=== PATIENT | male | born 1990 | race Caucasian/White ===

== ENCOUNTER 2018-12-27 05:41 | Emergency (ER) | payer MEDICAID ==
[~2018-12-27] VITALS: Ht 185.4 cm; Wt 88.0 kg
[2018-12-27] MEDS ORDERED: cloNIDine HCL 0.1 MG TAB PO ONE (06:15)
[2018-12-27] MEDS ORDERED: ONDANSETRON HCL 4 MG/2 ML VIAL IV ONE (06:15)
[2018-12-27] MEDS ORDERED: MORPHINE SULFATE 4 MG/ML SYR/VIAL IV ONE (06:15)
[2018-12-27 07:43] LABS: Basophils # (auto) 0 uL; Basophils % (auto) 0.5 % (0.0-2.0); Eosinophils # (auto) 0 uL; Eosinophils % (auto) 0.5 % (0.0-7.0); Hematocrit 51.3 % (41.0-53.0); Hemoglobin 17.6 g/dL (13.5-17.5); Lymphocytes % (auto) 10.9 % (10.0-50.0); Mean Corpuscular Hemoglobin 32.7 pg (28.0-32.0); Mean Corpuscular Hgb Conc. 34.4 g/dL (32.0-36.0); Monocytes # (auto) 0.8 uL; Neutrophils # (auto) 7.5 uL; Neutrophils % (auto) 80.1 % (37.0-80.0); Nucleated Red Blood Cells % 0.1 %; Platelet Count (auto) 288 10^3/uL (140-450); White Blood Cell 9.4 10^3/uL (4.4-10.8)
[2018-12-27 07:49] LABS: Albumin 3.7 g/dL (3.4-5.0); BUN/Creatinine Ratio 8.3; Calcium 9.9 mg/dL (8.5-10.1); Potassium 3.7 mmol/L (3.5-5.1)
[2018-12-27 07:52] LABS: Bilirubin, Total 0.4 mg/dL (0.2-1.0); Total Protein 8.6 g/dL (6.4-8.2)
[2018-12-27] MEDS ORDERED: KETOROLAC TROMETH 30 MG/ML 1ML VIAL IV ONE (09:00)
[2018-12-27 11:12] LABS: Urine Bacteria FEW /hpf (None Seen); Urine Blood TRACE /uL (Negative); Urine Hyaline Cast MOD /lpf (0 - 2); Urine Mucus FEW (None Seen); Urine Specific Gravity 1.029 (1.001-1.035); Urine WBC 1 /hpf (0 - 3)
[2018-12-27 11:37] LABS: Amphetamine Screen, Urine NEGATIVE (NEGATIVE); Barbiturate Scree,Urine NEGATIVE (NEGATIVE); Benzodiazephine Screen, Urine NEGATIVE (NEGATIVE); Cannabinoid Screen, Urine POSITIVE (NEGATIVE); Cocaine Screen, Urine NEGATIVE (NEGATIVE); Opiate Scree,Urine POSITIVE (NEGATIVE); Phencyclidine Screen, Urine NEGATIVE (NEGATIVE)
[2018-12-27 12:00] VITALS: BP 112/61
== END 2018-12-27 12:13 | disposition home or self-care (01) ==
LOC: ER 05:41
DX: K80.20 Calculus of gallbladder without cholecystitis without obstruction (principal); E86.0 Dehydration; F10.10 Alcohol abuse, uncomplicated; F17.210 Nicotine dependence, cigarettes, uncomplicated; F12.10 Cannabis abuse, uncomplicated
CPT/HCPCS: 36415; 74176; 76705; 80053; 80307; 80320; 81001; 85025; 96374; 96375; 99284; J1885; J2270; J2405

== ENCOUNTER 2024-12-17 14:22 | Emergency (ER) | payer MEDICAID ==
[~2024-12-17] VITALS: Ht 188 cm; Wt 66.3 kg
--- NOTE | 2024-12-17 14:51 | ED.PDOC ---
GI ASSESSMENT HPI Comments 34 y/o M, with PMHx of alcohol abuse presents to the ED for CC of abdominal pain. Patient states, he has been experiencing abdominal pain with associated symptoms of weakness, fatigue, and poor appetite [id number]. Patient reports, that he has been unable to keep anything down and throws up even clear liquids. Patient endorses, becoming so weak that he has been unable to ambulate and gets around with the assistance of a wheelchair. Patient denies diarrhea, hematemesis, constipation, fever, chills, or faintness. No other symptoms or modifying factors are present at this time. Chief Complaint: Abdominal Pain Time Seen by MD: 14:30 Reviewed Notes: Nurses Notes, Medications, Allergies Allergies: Coded Allergies: NO KNOWN ALLERGIES (Unverified , 12/27/18) Information Source: Patient Mode of Arrival: Wheelchair Timing: Months Duration: Since onset Prehospital treatment: None Vomitus: Watery Severity: Moderate Recent: None Recent Hx of: None Pain Location: Diffuse Modifying Factors: Nothing Associated sign and symptoms: Nausea, Vomiting, Abdominal Pain Past Medical History PAST MEDICAL HISTORY: Gallstones Surgical History: Denies all surgeries Family History Family History: Reviewed,noncontributory to illness Social History Smoker: Cigarettes, Less Than 1 Pack/Day Alcohol: Heavy Drugs: Marijuana Lives In: Home Constitutional: reports: fatigue; denies: chills, diaphoresis, fever, malaise, sweats, weakness, others EENTM: denies: blurred vision, double vision, ear bleeding, ear discharge, ear drainage, ear pain, ear ringing, eye pain, eye redness, hearing loss, mouth pain, mouth swelling, nasal discharge, nose bleeding, nose congestion, nose pain, photophobia, tearing, throat pain, throat swelling, voice changes, others Respiratory: denies: cough, hemoptysis, orthopnea, SOB at rest, shortness of breath, SOB with excertion, stridor, wheezing, others Cardiovascular: denies: chest pain, dizzy spells, diaphoresis, Dyspnea on exertion, edema, irregular heart beat, left arm pain, lightheadedness, palpitations, PND, syncope, others Gastrointestinal: reports: nausea, poor appetite, vomiting; denies: abdomen distended, abdominal pain, blood streaked bowels, constipated, diarrhea, dysphagia, difficulty swallowing, hematemesis, melena, poor fluid intake, rectal bleeding, rectal pain, others Genitourinary: denies: burning, dysuria, flank pain, frequency, hematuria, incontinence, penile discharge, penile sore, pain, testicle pain, testicle swelling, urgency, others Neurological: denies: dizziness, fainting, headache, left sided numbness, left sided weakness, numbness, paresthesia, pre-existing deficit, right sided numbness, right sided weakness, seizure, speech problems, tingling, tremors, weakness, others Musculoskeletal: denies: back pain, gout, joint pain, joint swelling, muscle pain, muscle stiffness, neck pain, others Integumetry: denies: bruises, change in color, change in hair/nails, dryness, laceration, lesions, lumps, rash, wounds, others Allergic/Immunocompromised: denies: Difficulty Healing, Frequent Infections, Hives, Itching, others Hematologic/Lymphatic: denies: anemia, blood clots, easy bleeding, easy bruising, swollen glands, others Endocrine: denies: excessive hunger, excessive sweating, excessive thirst, excessive urination, flushing, intolerance to cold, intolerance to heat, unexplained weight gain, unexplained weight loss, others Psychiatric: denies: anxiety, bipolar disorder, depression, hopeless, panic disorder, schizophrenia, sleepless, suicidal, others All Other Systems: Reviewed and Negative Physical Exam General Appearance: Moderate Distress, Thin HEENT: Pharynx Normal, Scleral Icterus (L), Scleral Icterus (R), TMs Normal Neck: Full Range of Motion, Non-Tender, Normal, Normal Inspection Respiratory: Chest Non-Tender, Lungs Clear, No Accessory Muscle Use, No Respiratory Distress, Normal Breath Sounds Cardiovascular: No Edema, No JVD, No Murmur, No Gallop, Normal Peripheral Pulses, Regular Rate/Rhythm Breast Exam: Deferred Gastrointestinal: Diffuse, No Organomegaly, No Pulsatile Mass, Normal Bowel Sounds, Soft, Tenderness Genitalia: Deferred Pelvic: Deferred Rectal: Deferred Extremities: No calf tenderness, Normal capillary refill, No pedal edema Musculoskeletal : Apperance: Normal Neurologic: Alert, jewelry internship II-XII nml as Tested, No Motor Deficits, Normal Affect, Normal Mood, No Sensory Deficits Cerebellar Function: Normal Reflexes: Normal Skin: Dry, Normal Color, Warm Lymphatic: No Adenopathy Was a procedure done? Was a procedure done?: No GI differential Dx Differential Diagnosis: Gastritis/PUD, Gastroenteritis, Dehydration, Drug toxicity, Bacterial, Viral X-Ray, Labs, Meds, VS Vital Signs Date Time Temp Pulse Resp B/P (MAP) Pulse Ox O2 Delivery O2 Flow Rate FiO2 12/17/24 15:13 98.6 98 18 137/77 (97) 99 98.6 12/17/24 14:25 97.7 106 16 126/75 100 97.7 Lab Test 12/17/24 15:23 Range/Units White Blood Count 9.8 4.4-10.8 10^3/uL Red Blood Count 3.17 L 4.5-5.90 10^6/uL Hemoglobin 11.1 L 13.5-17.5 g/dL Hematocrit 31.5 L 41.0-53.0 % Mean Corpuscular Volume 99.4 80.0-100.0 fL Mean Corpuscular Hemoglobin 35.0 H 28.0-32.0 pg Mean Corpuscular Hemoglobin Concent 35.2 32.0-36.0 g/dL Red Cell Distribution Width 13.5 11.8-14.3 % Platelet Count 132 L 140-450 10^3/uL Mean Platelet Volume 6.8 L 6.9-10.8 fL Neutrophils (%) (Auto) 70.9 37.0-80.0 % Lymphocytes (%) (Auto) 17.4 10.0-50.0 % Monocytes (%) (Auto) 9.4 0.0-12.0 % Eosinophils (%) (Auto) 1.4 0.0-7.0 % Basophils (%) (Auto) 0.9 0.0-2.0 % Neutrophils # (Auto) 7.0 1.6-8.6 10 ^3/uL Lymphocytes # (Auto) 1.7 0.4-5.4 10 ^3/uL Monocytes # (Auto) 0.9 0-1.3 10 ^3/uL Eosinophils # (Auto) 0.1 0-0.8 10 ^3/uL Basophils # (Auto) 0.1 0-0.2 10 ^3/uL Nucleated Red Blood Cells 0.1 % Sodium Level 137 136-145 mmol/L Potassium Level 3.6 3.5-5.1 mmol/L Chloride Level 105 98-107 mmol/L Carbon Dioxide Level 25 20-31 mmol/L Anion Gap 7 5-15 Blood Urea Nitrogen < 5 L 9-23 mg/dL Creatinine 0.70 0.700-1.30 mg/dL Glomerular Filtration Rate Calc 123 >90 mL/min BUN/Creatinine Ratio 7.1 L 10.0-20.0 Serum Glucose 101 74-106 mg/dL Calcium Level 8.6 L 8.7-10.4 mg/dL Total Bilirubin 2.8 H 0.2-1.0 mg/dL Aspartate Amino Transferase (AST) 232 H 13-40 U/L Alanine Aminotransferase (ALT) 91 H 7-40 U/L Alkaline Phosphatase 179 H 46-116 U/L Total Protein 7.7 5.7-8.2 g/dL Albumin 3.1 L 3.2-4.8 g/dL Lipase 99 H 12-53 U/L Plasma/Serum Blood Alcohol 82.3 H <10 mg/dL [place] [id number] DIAGNOSTIC IMAGING Diagnostic Imaging Report : [id number] Signed PATIENT: KARISHMA JONES ACCT: [id number] UNIT: [id number] : 1990 LOC: ER ROOM / BED: / AGE / SEX: 34 / M ADM STATUS: REG ER SERVICE 1453 ORDERING PHYSICIAN: EVER CAZARES MD PROCEDURE(s): ABPL - CT AB PEL WO CON-NO ORAL OR IV REASON: pain ORDER NUMBER(s): [id number], ACCESSION NUMBER(s): [id number] CLINICAL HISTORY: Abdominal pain TECHNIQUE: CT of the abdomen and pelvis was performed without intravenous contrast. This exam was performed according to our departmental dose optimization program. Up-to-date CT equipment and radiation dose reduction techniques are utilized as appropriate. CTDI: 7.46 DLP: 420.81 WID: COMPARISON: None FINDINGS: Lower Thorax: Normal-sized heart. Lung bases are clear. There are small gastroesophageal varices. Liver and Biliary system: Mild hepatomegaly with the right lobe of the liver measuring 19 cm craniocaudal very mild nodular contour of the liver. Prior cholecystectomy. There is no biliary ductal dilatation. Portosystemic collateral vessels are present in the upper abdomen Spleen: Mild Splenomegaly. Adrenal Glands and Kidneys: Unremarkable. Pancreas and Retroperitoneum: Grossly normal pancreas. There are prominent gastrohepatic ligament periportal, and retroperitoneal lymph nodes. Aorta and Major Vessels: Unremarkable. Bowel, Mesentery and Peritoneal space: Normal caliber small and large bowel. There is mild wall thickening of the ascending colon. Trace ascites. No free air or fluid collection. Pelvis: Unremarkable. Abdominal wall and Osseous Structures: Mild body wall edema. Tiny sclerotic foci in the proximal femurs and pelvis, likely bone islands. No destructive osseous lesion. IMPRESSION: 1. Findings suggestive of fibrosis or cirrhosis of the liver which demonstrates nodular contour, and portal hypertension with portosystemic collateral vessels including small gastroesophageal varices, mild splenomegaly, and mild ascites. 2. Mild wall thickening of the ascending colon which could be related to portal hypertension versus mild colitis. 3. Mild body wall edema. ATED BY: CRYS BAXTER MD DICTATED DATE/TIME: 12/17/241537 SIGNED BY: CRYS BAXTER MD SIGNED DATE/TIME: 12/17/241537 CC: The patient is showing some cirrhosis of the liver The patient also has some colitis. At this time, the patient is being admitted to the hospitalist The CBC shows some mild anemia The chemistry panel is within normal limits. The liver enzymes are elevated with a total bilirubin of 2.8 Images Reviewed?: Images reviewed and evaluated by me Time of 1ST Reevaluation: 15:00 Reevaluation 1ST: Unchanged Patient Education/Counseling: Diagnosis, Treatment, Prognosis Family Education/Counseling: Diagnosis, Treatment, Prognosis SEPSIS Sepsis Screen Date sepsis recognized/suspect: Dec 17, 2024 Time Sepsis recognized/suspect: 1424 Recent Procedure: No On Antibiotic Therapy: No Respiratory Rate >20: No Heart Rate >90: Yes Temp<36 C (96.8 F) or >38.3 C: No SBP <90 or MAP <65 mmHG: No New Acute Mental Status Change: No Is the patient on CPAP, BIPAP,: No Physician Orders Urinalysis (12/17/24 14:53) Ct Ab Pel Wo Con-No Oral Or Iv (12/17/24 14:53) Heplock Iv (12/17/24 14:53) Granulator Tender (12/17/24 14:53) Blood Pressure (12/17/24 14:53) Pulse Oximetry (12/17/24 14:53) Drug Screen (12/17/24 14:53) Vital Signs Date Time Temp Pulse Resp B/P (MAP) Pulse Ox O2 Delivery O2 Flow Rate FiO2 12/17/24 15:13 98.6 98 18 137/77 (97) 99 98.6 12/17/24 14:25 97.7 106 16 126/75 100 97.7 Laboratory Tests Test 12/17/24 15:23 White Blood Count 9.8 10^3/uL (4.4-10.8) Departure 1 Departure Time of Disposition: 17:51 Impression: Primary Impression: Intractable abdominal pain Additional Impressions: Intractable vomiting Severe dehydration Hyperbilirubinemia Disposition: ADMITTED INPATIENT Admit to: Med Surg Condition: Fair Critical Care Note Critical Care Time?: No Stability Stability form required: Yes Unstable for transfer: ED Physician Assesment (Clinical assesment) Heart Score Heart Score: Heart Score Response (Comments) Value History N/A 0 EKG N/A 0 Age N/A 0 Risk Factors N/A 0 Troponin N/A 0 Total 0 I personally scribed for EVER CAZARES MD ([email or web address]) on 12/17/24 at 14:51. Electronically submitted by Gladis Nichols ([email or web address]). I personally scribed for EVER CAZARES MD ([email or web address]) on 12/17/24 at 16:03. Electronically submitted by Thuy Almazan ([facility]). I personally scribed for EVER CAZARES MD ([email or web address]) on 12/17/24 at 16:25. Electronically submitted by Gladis Nichols [email or web address]). EVER CAZARES MD Dec 17, 2024 14:51
[2024-12-17] MEDS ORDERED: SODIUM CHLORIDE 0.9% 1,000 ML IVB ONE (15:00)
[2024-12-17] MEDS ORDERED: ONDANSETRON HCL 4 MG/2 ML VIAL IV ONE (15:00)
[2024-12-17 15:13] VITALS: BP 137/77; PULSE 98; RESP 18; TEMP 98.6; O2SAT 99
[2024-12-17 15:38] LABS: Hematocrit 31.5 % (41.0-53.0); Hemoglobin 11.1 g/dL (13.5-17.5); Mean Corpuscular Hemoglobin 35.0 pg (28.0-32.0); Mean Corpuscular Volume 99.4 fL (80.0-100.0); Nucleated Red Blood Cells % 0.1 %
--- NOTE | 2024-12-17 15:40 | DVH ---
CLINICAL HISTORY: Abdominal pain TECHNIQUE: CT of the abdomen and pelvis was performed without intravenous contrast. This exam was performed according to our departmental dose optimization program. Up-to-date CT equipment and radiation dose reduction techniques are utilized as appropriate. CTDI: 7.46 DLP: 420.81 WID: COMPARISON: None FINDINGS: Lower Thorax: Normal-sized heart. Lung bases are clear. There are small gastroesophageal varices. Liver and Biliary system: Mild hepatomegaly with the right lobe of the liver measuring 19 cm craniocaudal very mild nodular contour of the liver. Prior cholecystectomy. There is no biliary ductal dilatation. Portosystemic collateral vessels are present in the upper abdomen Spleen: Mild Splenomegaly. Adrenal Glands and Kidneys: Unremarkable. Pancreas and Retroperitoneum: Grossly normal pancreas. There are prominent gastrohepatic ligament periportal, and retroperitoneal lymph nodes. Aorta and Major Vessels: Unremarkable. Bowel, Mesentery and Peritoneal space: Normal caliber small and large bowel. There is mild wall thickening of the ascending colon. Trace ascites. No free air or fluid collection. Pelvis: Unremarkable. Abdominal wall and Osseous Structures: Mild body wall edema. Tiny sclerotic foci in the proximal femurs and pelvis, likely bone islands. No destructive osseous lesion. IMPRESSION: 1. Findings suggestive of fibrosis or cirrhosis of the liver which demonstrates nodular contour, and portal hypertension with portosystemic collateral vessels including small gastroesophageal varices, mild splenomegaly, and mild ascites. 2. Mild wall thickening of the ascending colon which could be related to portal hypertension versus mild colitis. 3. Mild body wall edema.
[2024-12-17 15:57] LABS: Anion Gap 7 (5-15); Carbon Dioxide 25 mmol/L (20-31); Chloride 105 mmol/L (98-107); Glucose 101 mg/dL (74-106); Potassium 3.6 mmol/L (3.5-5.1); Sodium 137 mmol/L (136-145); Total Protein 7.7 g/dL (5.7-8.2)
[2024-12-17 16:01] LABS: Alanine Aminotransferase 91 U/L (7-40); Albumin 3.1 g/dL (3.2-4.8); Alkaline Phosphatase 179 U/L (46-116); BUN/Creatinine Ratio 7.1 (10.0-20.0); Bilirubin, Total 2.8 mg/dL (0.2-1.0); Blood Urea Nitrogen < 5 mg/dL (9-23); Calcium 8.6 mg/dL (8.7-10.4)
[2024-12-17 16:21] LABS: Lipase 99 U/L (12-53)
== END 2024-12-17 20:53 | disposition left against medical advice (07) ==
LOC: ER 14:22
DX: R10.84 Generalized abdominal pain (principal); R11.2 Nausea with vomiting, unspecified; E86.0 Dehydration; E88.09 Other disorders of plasma-protein metabolism, not elsewhere classified; F17.210 Nicotine dependence, cigarettes, uncomplicated; Z79.899 Other long term (current) drug therapy
CPT/HCPCS: 36415; 74176; 80053; 80320; 83690; 85025